=== PATIENT | male | born 1960 | race Caucasian/White ===

== ENCOUNTER 2024-03-26 10:35 | Emergency (ER) | payer OTHER ==
[~2024-03-26] VITALS: Wt 127.9 kg
[~2024-03-26 10:35] MED LIST: DAYPRO600 M1 PO; SKELAXIN800 MG PO
[2024-03-26] MEDS ORDERED: SODIUM CHLORIDE 0.9% 1,000 ML IV ONE ×2 (10:45→11:25)
[2024-03-26] MEDS ORDERED: ALLOPURINOL100 MG PO (10:46)
[2024-03-26] MEDS ORDERED: LISINOPRIL2.5 MG PO (10:46)
[2024-03-26] MEDS ORDERED: LIPITOR10 MG PO (10:46)
[2024-03-26] MEDS ORDERED: BP MED (10:46)
[2024-03-26 11:10] LABS: BASO % 0.3 % (0.0-1.0); EOS # 0.1 10*3/uL (0.0-0.4); EOS % 0.5 % (1.0-4.0); HEMATOCRIT 40.8 % (42.0-52.0); MEAN CELL VOLUME 83.6 fl (80.0-94.0); MEAN CORPUSCULAR HGB 26.2 pg (27.0-31.0); MEAN CORPUSCULAR HGB CONC 31.4 g/dl (33.0-37.0); MEAN PLATELET VOLUME 8.8 fl (9.6-12.3); MONO # 0.9 10*3/uL (0.1-1.0); MONO % 7.7 % (3.0-9.0); NEUT % 80.3 % (47.0-73.0); PLATELET COUNT AUTOMATED 263 10*3/uL (130-400); RED BLOOD COUNT 4.88 10*6/uL (4.50-5.90); RED CELL DISTRI WIDTH 15.3 % (0-14.5); WHITE BLOOD COUNT 11.2 10*3/uL (4.8-10.8)
[2024-03-26 11:28] LABS: BUN 20 mg/dl (9-23); CHLORIDE 97 mmol/L (98-107); POTASSIUM 4.3 mmol/L (3.4-5.1)
== END 2024-03-26 11:48 | disposition short-term general hospital (02) ==
LOC: ED 10:35
PROVIDERS: Emergency Medicine
DX: M54.50 Low back pain, unspecified (principal); R53.1 Weakness; I10 Essential (primary) hypertension; Z91.041 Radiographic dye allergy status; X58.XXXA Exposure to other specified factors, initial encounter; Y93.89 Activity, other specified; Y92.89 Other specified places as the place of occurrence of the external cause; Y99.8 Other external cause status

== ENCOUNTER 2024-10-14 14:37 | Emergency (ER) | payer OTHER ==
[~2024-10-14] VITALS: Ht 180.3 cm; Wt 124.7 kg
[~2024-10-14 14:37] MED LIST changes: +ABIRATERONE AC250 MG PO; +ALLOPURINOL100 MG PO; +ALLOPURINOL300 MG PO; +BP MED; +CEFTRIAXON2 GM/50 ML IV; +CEPHALEXIN500 M1 PO; +FLOMAX0.4 MG PO; +LASIX20 MG PO; +LIPITOR10 MG PO; +LISINOPRIL2.5 MG PO; +LISINOPRIL20 MG PO; +MILLIPRED5 MG PO
[2024-10-14] MEDS ORDERED: METOPROLOL SUCC50 M1 PO (15:17)
[2024-10-14] MEDS ORDERED: 'CLONIDINE0.1 MG PO (15:17)
[2024-10-14 16:30] LABS: BASO # 0.0 10*3/uL (0.0-0.1); BASO % 0.5 % (0.0-1.0); EOS # 0.0 10*3/uL (0.0-0.4); EOS % 0.7 % (1.0-4.0); MEAN CELL VOLUME 82.8 fl (80.0-94.0); MEAN CORPUSCULAR HGB 26.2 pg (27.0-31.0); MEAN PLATELET VOLUME 8.3 fl (9.6-12.3); MONO # 0.4 10*3/uL (0.1-1.0); MONO % 6.1 % (3.0-9.0); NEUT # 4.7 10*3/uL (2.3-7.9); NEUT % 82.0 % (47.0-73.0); NUCLEATED RED BLOOD CELL 0.0 % (0.0-0.0); NUCLEATED RED BLOOD CELL 0.0 10*3/uL (0.0-0.0); PLATELET COUNT AUTOMATED 180 10*3/uL (130-400); RED CELL DISTRI WIDTH 14.4 % (0-14.5)
[2024-10-14 16:58] LABS: BUN 15 mg/dl (9-23)
== END 2024-10-14 17:56 | disposition home or self-care (01) ==
LOC: ED 14:37
PROVIDERS: Nurse Practitioner Family
DX: I10 Essential (primary) hypertension (principal); Z91.041 Radiographic dye allergy status; Z79.899 Other long term (current) drug therapy